=== PATIENT | female | born 1955 | race Caucasian/White ===

== ENCOUNTER 2017-04-20 13:42 | Emergency (ER) | payer SELFPAY ==
[~2017-04-20] VITALS: Ht 160 cm; Wt 69.0 kg
[2017-04-20 15:56] LABS: BASOPHILS % 2.1 % (0.0-2.0); EOSINOPHILS % 3.7 % (0.0-5.0); HEMATOCRIT. 42.5 % (36.0-48.0); HEMOGLOBIN. 14.7 g/dL (12.0-16.0); LYMPHOCYTES % 29.3 % (20.0-50.0); MEAN CORPUSCULAR HEMOGLOBIN 31.2 pg (28.0-32.0); MEAN CORPUSCULAR VOLUME 90.4 fL (81.0-99.0); MEAN PLATELET VOLUME 8.1 fl (7.4-10.4); MONOCYTES % 11.5 % (2.0-8.0); NEUTROPHILS % 53.4 % (40.0-76.0); PLATELET 291 x1000/uL (130-400); RED BLOOD CELL COUNT 4.71 mill/uL (4.2-5.4); RED CELL DISTRIBUTION WIDTH 13.1 % (11.6-14.6)
[2017-04-20 15:58] LABS: CHLORIDE 110 mEq/L (98-107)
[2017-04-20 16:05] LABS: CARBON DIOXIDE 24 mEq/L (21-32); ETHANOL BLOOD < 10 mg/dL
[2017-04-20 16:05] LABS: CLARITY URINE CLEAR (CLEAR); COLOR URINE YELLOW (YELLOW); GLUCOSE URINE NEGATIVE (NEGATIVE); KETONES URINE NEGATIVE (NEGATIVE); LEUKOCYTE ESTERASE URINE 3+ (NEGATIVE); NITRITE URINE POSITIVE (NEGATIVE); OCCULT BLOOD URINE NEGATIVE (NEGATIVE); PROTEIN URINE NEGATIVE (NEGATIVE); SPECIFIC GRAVITY URINE 1.007 (1.005-1.030)
[2017-04-20 16:22] LABS: *AMPHETAMINES SCREEN URINE NEGATIVE (NEGATIVE); *BARBITURATES SCREEN URINE NEGATIVE (NEGATIVE); *BENZODIAZEPINES SCREEN URINE PRESUMTIVE POSITIVE (NEGATIVE); *COCAINE SCREEN URINE NEGATIVE (NEGATIVE); CANNABINOID URINE SCREEN NEGATIVE (NEGATIVE); METHADONE URINE SCREEN NEGATIVE (NEGATIVE); OPIATES URINE SCREEN NEGATIVE (NEGATIVE); PHENCYCLIDINE URINE SCREEN NEGATIVE (NEGATIVE)
[2017-04-20] MEDS ORDERED: LORAZEPAM 2MG/ML CPJ IM ONE ×2 (17:30→21:45)
[2017-04-20] MEDS ORDERED: DIPHENHYDRAMINE 50MG/ML VIAL IM ONE (21:45)
[2017-04-20] MEDS ORDERED: LORAZEPAM 2MG/ML CPJ IM NR (21:54)
[2017-04-21] MEDS ORDERED: LORAZEPAM 2MG/ML CPJ ONE (09:11)
[2017-04-21] MEDS ORDERED: LORAZEPAM 2MG/ML CPJ IM ONE (09:15)
[2017-04-21 11:12] VITALS: BP 108/74
== END 2017-04-21 13:00 | disposition home or self-care (01) ==
LOC: ER 13:59
DX: F32.9 Major depressive disorder, single episode, unspecified (principal); E78.00 Pure hypercholesterolemia, unspecified
CPT/HCPCS: 36415; 80053; 80305; 80307; 80329; 81001; 85025; 96372; 99284; G0482; J1200; J2060; Z7610